=== PATIENT | female | born 1970 | race Caucasian/White ===

== ENCOUNTER 2017-06-09 14:19 | Emergency (ER) | payer BC ==
[~2017-06-09] VITALS: Ht 162.6 cm; Wt 47.6 kg
[2017-06-09 14:55] VITALS: BP 156/84; PULSE 87; RESP 16; TEMP 98; O2SAT 98
--- NOTE | 2017-06-09 16:50 | PD ---
HPI Chief Complaint: Respiratory Symptoms Time Seen by Provider: 16:19 Travel History International Travel<30 days: No Contact w/Intl Traveler<30days: No Traveled to known affect area: No History of Present Illness HPI 15 DAYS AGO STARTED WITH COUGH DX WITH BRONCHITIS PLACED ON ZPAK, FINISHED IT BUT COUGHING GOT WORSE, PLACED ON 10 DAYS OF DOXYCYCLINE STARTED AT URGENT CARE WHERE SHE WAS DIAGNOSED WITH PNA, AND PLACED ON TESSLON PERLES....PT STATES CONTINUES TO HAVE BODY ACHES, PROD COUGH AND DOES NOT FEEL IMPROVED OF YET. ALL:NKDA PCP:NONE PMHX: PSHX: PFSH Past Medical History Medical History: Denies Significant Hx ?: Not LMP: 05/22/17 Past Surgical History Surgical History: No Previous Surgery Social History Alcohol Use: No Tobacco Use: No Substance Use: No Allergies-Medications (Allergen,Severity, Reaction): Coded Allergies: No Known Allergies (Verified Allergy, Unknown, 06/09/17) Reported Meds & Prescriptions Reported Meds & Active Scripts Active No Active Prescriptions or Reported Medications Physical Exam Narrative GENERAL: SKIN: Warm and dry. HEAD: Atraumatic. Normocephalic. EYES: Pupils equal and round. No scleral icterus. No injection or drainage. ENT: No nasal bleeding or discharge. Mucous membranes pink and moist. NECK: Trachea midline. No JVD. CARDIOVASCULAR: Regular rate and rhythm. RESPIRATORY: No accessory muscle use. Breath sounds equal bilaterally. MILD SCATTERED WHEEZES WITH GREAT TIDAL VOLUME GASTROINTESTINAL: Abdomen soft, non-tender, nondistended. MUSCULOSKELETAL: Extremities without clubbing, cyanosis, or edema. No obvious deformities. NEUROLOGICAL: Awake and alert. No obvious cranial nerve deficits. Motor grossly within normal limits. Five out of 5 muscle strength in the arms and legs. Normal speech. PSYCHIATRIC: Appropriate mood and affect; insight and judgment normal. Data Data Last Documented VS Vital Signs Date Time Temp Pulse Resp B/P (MAP) Pulse Ox O2 Delivery O2 Flow Rate FiO2 06/09/17 14:55 98.0 87 16 156/84 (108) 98 Orders Orders Chest, Pa & Lat (06/09/17 16:24) Ed Urine Pregnancytest Poc (06/09/17 16:24) MDM Medical Decision Making Medical Screen Exam Complete: Yes Emergency Medical Condition: Yes Medical Record Reviewed: Yes Differential Diagnosis PNA V BRONCHITIS V PTX Narrative Course PATIENT IS FOUND TO HAVE HYPERINFLATION C/W COPD TYPE OF FINDINGS, NO MAJOR CONSOLIDATION NOTED, NO PTX NOTED EITHER. WILL PROVIDE COURSE OF ABX WELL ROBITUSSIN FOR MUCOUS LOOSENING UP OF PHLEGM Diagnosis Primary Impression: BRONCHIECTASIS V RESOLVING PNA Patient Instructions: Bronchiectasis (DC), General Instructions Scripts Albuterol 18 GM Inh (Ventolin Hfa 18 GM Inh) 90 Mcg/Act Aer 1 PUFF INH Q4H Y for SHORTNESS OF BREATH, #1 INHALER 0 Refills Prov: Doe Gagnon MD 06/09/17 Guaifenesin-Codeine Liq (Guaifenesin AC Liq) 100-10 Mg/5 Ml Syrp 10 ML PO Q4H Y for COUGH, #1 BOTTLE 0 Refills Prov: Doe Gagnon MD 06/09/17 Ciprofloxacin (Cipro) 500 Mg Tab 500 MG PO BID for Infection for 7 Days, #14 TAB 0 Refills Prov: Doe Gagnon MD 06/09/17 Disposition: 01 DISCHARGE HOME Condition: Stable Doe Gagnon MD Jun 09, 2017 16:50
[2017-06-09] MEDS ORDERED: CIPR-9 PO (17:10)
[2017-06-09] MEDS ORDERED: GUAISYP4 PO (17:10)
[2017-06-09] MEDS ORDERED: VENTAER INH (17:10)
--- NOTE | 2017-06-09 17:17 | RADRPT ---
EXAM DATE/TIME: 06/09/2017 16:52 [facility] COMPARISON: No previous studies available for comparison. INDICATIONS : Follow up pneumonia. Cough. MEDICAL HISTORY : None. SURGICAL HISTORY : None. ENCOUNTER: Subsequent ACUITY: 2 weeks PAIN SCORE: 6/10 LOCATION: Bilateral chest FINDINGS: PA and lateral views of the chest demonstrate the lungs to be symmetrically aerated without evidence of mass, infiltrate or effusion. The cardiomediastinal contours are unremarkable. Osseous structure s are intact. Cervical rib on the right CONCLUSION: No acute disease. Deonte Sharma MD on June 09, 2017 at 17:15 Board Certified Radiologist. This report was verified electronically.
[2017-06-09] MEDS ORDERED: ZOFR4TAB3 SL (17:51)
[2017-06-09 18:04] VITALS: BP 125/73; PULSE 83; RESP 20; O2SAT 98
== END 2017-06-09 18:23 | disposition home or self-care (01) ==
LOC: PHED 14:19
DX: R05 Cough (principal)
CPT/HCPCS: 71020; 84703; 99284